=== PATIENT | male | born 1965 | race Caucasian/White ===

== ENCOUNTER → 2024-01-07 09:44 | Outpatient (REF) | payer MEDICARE, SELFPAY | LOC: RAD 09:44 | PROVIDERS: ATTENDING PHYSICIAN Internal Medicine Hospice and Palliative Medicine; FAMILY PHYSICIAN Family Medicine | DX: G71.11 Myotonic muscular dystrophy (principal); R13.10 Dysphagia, unspecified | CPT/HCPCS: 74230; 92611 ==